=== PATIENT | male | born 1955 | race Caucasian/White ===

== ENCOUNTER 2017-12-02 11:33 | Observation (INO) | payer BC, OTHER ==
[~2017-12-02] VITALS: Ht 172.7 cm; Wt 100.0 kg
[~2017-12-02 11:33] MED LIST: ASPI81TA45 PO; ATOR40TA PO; PRIL20CA PO; VIAG100T PO; VITA400C28 PO
[2017-12-02 12:10] VITALS: BP 126/82; PULSE 90; RESP 16; TEMP 98.6; O2SAT 97
[2017-12-02] MEDS ORDERED: CLINDAMYCIN 600 MG/NS PREMIX 50 ML IV ONE (12:30)
[2017-12-02] MEDS ORDERED: SODIUM CHLORIDE 0.9% FLUSH 10 ML FLUSH IV FLUSH PRN ×2 (12:30→16:30)
[2017-12-02] MEDS ORDERED: ASPI81TA23 PO (12:42)
[2017-12-02] MEDS ORDERED: VITA1000 PO (12:42)
[2017-12-02] MEDS ORDERED: OMEP20TA93 PO (12:42)
[2017-12-02] MEDS ORDERED: ATOR40TA16 PO (12:42)
[2017-12-02 12:55] VITALS: BP 115/70; PULSE 62; RESP 17; O2SAT 94
[2017-12-02 13:02] LABS: AUTOMATED NEUTROPHIL # 12.7 TH/MM3 (1.8-7.7); BASOPHIL # 0.1 TH/MM3 (0-0.2); BASOPHIL % 0.5 % (0.0-2.0); EOSINOPHIL # 0.1 TH/MM3 (0-0.4); EOSINOPHIL % 0.6 % (0.0-4.0); HEMATOCRIT 40.8 % (39.0-51.0); HEMOGLOBIN 13.9 GM/DL (13.0-17.0); LYMPH % 24.8 % (9.0-44.0); LYMPHOCYTE # 4.8 TH/MM3 (1.0-4.8); MEAN CORPUSCULAR HEMOGLOBIN 28.7 PG (27.0-34.0); MEAN CORPUSCULAR HGB CONC 34.2 % (32.0-36.0); MEAN PLATELET VOLUME 8.4 FL (7.0-11.0); MONO % 9.2 % (0.0-8.0); MONOCYTE # 1.8 TH/MM3 (0-0.9); NEUT % 64.9 % (16.0-70.0); PLATELET COUNT 236 TH/MM3 (150-450); RED BLOOD COUNT 4.86 MIL/MM3 (4.50-5.90); RED CELL DISTRIBUTION WIDTH 13.8 % (11.6-17.2); WHITE BLOOD COUNT 19.5 TH/MM3 (4.0-11.0)
[2017-12-02 13:16] LABS: BICARBONATE 29.3 MEQ/L (21.0-32.0); CREATININE 1.21 MG/DL (0.60-1.30); MAGNESIUM 2.5 MG/DL (1.5-2.5)
--- NOTE | 2017-12-02 13:16 | PD ---
HPI Chief Complaint: Skin Problem Time Seen by Provider: 12:21 Travel History International Travel<30 days: No Contact w/Intl Traveler<30days: No Traveled to known affect area: No History of Present Illness HPI 62-year-old male that presents to the ED for evaluation of left groin infection. Per patient has had this since last . Per patient he noticed that it was a small pimple-like lesion. Per patient he was out of town and he noticed that he started to grow more in size. He developed some fevers but has had no fever today. He went to the urgent care today and urgent care told him to come here to get evaluated for possible gangrene versus internal abscess. Patient states having pain on the groin which is 6 out of 10. He is able to ambulate. He voices no other complaints. Per patient he does have a small opening where pus seems to be coming out of it. He denies any history of this in the past. No surgeries to this area. No history of diabetes or immunosuppression. States that he has not had a fever today. No bowel movement or urinary issues. No cough or runny nose. No allergies to medication. PFSH Past Medical History Cancer: No Cardiovascular Problems: Yes (RIGHT CAROTID BLOCKAGE) Diabetes: No Hepatitis: Yes (B) Hiatal Hernia: No Respiratory: Yes (SHORTNESS OF BREATH) Thyroid Disease: No Tetanus Vaccination: > 5 Years Past Surgical History Abdominal Surgery: No Cardiac Surgery: No Ear Surgery: No Pacemaker: No Other Surgery: Yes Social History Alcohol Use: Yes (2-3/ WEEK) Tobacco Use: Yes (CIGARETTES) Substance Use: Yes Allergies-Medications (Allergen,Severity, Reaction): Coded Allergies: No Known Allergies (Unverified Adverse Reaction, Unknown, 12/02/17) Reported Meds & Prescriptions Reported Meds & Active Scripts Active Viagra (Sildenafil Citrate) 100 Mg Tab 100 Mg PO DAILY PRN Reported Omeprazole 20 Mg Tab 20 Mg PO DAILY Vitamin D-1000 (Cholecalciferol) 1,000 Unit Tab 1,000 Units PO DAILY Atorvastatin (Atorvastatin Calcium) 40 Mg Tab 40 Mg PO HS Aspirin EC (Aspirin) 81 Mg Tabdr 81 Mg PO DAILY Review of Systems Except as stated in HPI: all other systems reviewed are Neg Physical Exam Narrative GENERAL: SKIN: Warm and dry. Patient has what appears to be an indurated/purulent area of about 8 cm in diameter on the left groin. Small opening with purulence expressed from it. HEAD: Atraumatic. Normocephalic. EYES: Pupils equal and round. No scleral icterus. No injection or drainage. ENT: No nasal bleeding or discharge. Mucous membranes pink and moist. Tongue is midline. No uvula deviation. NECK: Trachea midline. No JVD. CARDIOVASCULAR: Regular rate and rhythm. No murmurs, S3, S4. RESPIRATORY: No accessory muscle use. Clear to auscultation. Breath sounds equal bilaterally. GASTROINTESTINAL: Abdomen soft, non-tender, nondistended. Hepatic and splenic margins not palpable. MUSCULOSKELETAL: Extremities without clubbing, cyanosis, or edema. No obvious deformities. Full range of motion of the upper and lower extremities bilaterally. 2+ pulses bilaterally. NEUROLOGICAL: Awake and alert. No obvious cranial nerve deficits. Motor grossly within normal limits. Five out of 5 muscle strength in the arms and legs. Normal speech. PSYCHIATRIC: Appropriate mood and affect; insight and judgment normal. Data Data Last Documented VS Vital Signs Date Time Temp Pulse Resp B/P (MAP) Pulse Ox O2 Delivery O2 Flow Rate FiO2 12/02/17 12:55 62 17 115/70 (85) 94 Room Air 12/02/17 12:10 98.6 Orders Orders Complete Blood Count With Diff (12/02/17 12:28) Basic Metabolic Panel (Bmp) (12/02/17 12:28) Blood Culture (12/02/17 12:28) Magnesium (Mg) (12/02/17 12:28) Wound Culture And Gram Stain (12/02/17 12:28) Iv Access Insert/Monitor (12/02/17 12:28) Ecg Monitoring (12/02/17 12:28) Oximetry (12/02/17 12:28) Sodium Chloride 0.9% Flush (Ns Flush) (12/02/17 12:30) Ct Pelvis W Iv Contrast(Rout) (12/02/17 ) Clindamycin 600 Mg/Ns Premix (Cleocin 60 (12/02/17 12:30) Lactic Acid Sepsis Protocol (12/02/17 13:05) Iohexol 350 Inj (Omnipaque 350 Inj) (12/02/17 13:56) Lidocaine Pf 1% Inj (Xylocaine-Mpf 1% In (12/02/17 14:00) Admit Order (Ed Use Only) (12/02/17 ) Vital Signs (Adult) Q4H (12/02/17 15:00) Diet Heart Healthy (12/02/17 Dinner) Activity Bed Rest (12/02/17 15:00) Labs Laboratory Tests Test 12/02/17 12:55 12/02/17 13:10 White Blood Count 19.5 TH/MM3 Red Blood Count 4.86 MIL/MM3 Hemoglobin 13.9 GM/DL Hematocrit 40.8 % Mean Corpuscular Volume 84.0 FL Mean Corpuscular Hemoglobin 28.7 PG Mean Corpuscular Hemoglobin Concent 34.2 % Red Cell Distribution Width 13.8 % Platelet Count 236 TH/MM3 Mean Platelet Volume 8.4 FL Neutrophils (%) (Auto) 64.9 % Lymphocytes (%) (Auto) 24.8 % Monocytes (%) (Auto) 9.2 % Eosinophils (%) (Auto) 0.6 % Basophils (%) (Auto) 0.5 % Neutrophils # (Auto) 12.7 TH/MM3 Lymphocytes # (Auto) 4.8 TH/MM3 Monocytes # (Auto) 1.8 TH/MM3 Eosinophils # (Auto) 0.1 TH/MM3 Basophils # (Auto) 0.1 TH/MM3 CBC Comment DIFF FINAL Differential Comment Blood Urea Nitrogen 14 MG/DL Creatinine 1.21 MG/DL Random Glucose 106 MG/DL Calcium Level 9.0 MG/DL Magnesium Level 2.5 MG/DL Sodium Level 141 MEQ/L Potassium Level 4.6 MEQ/L Chloride Level 106 MEQ/L Carbon Dioxide Level 29.3 MEQ/L Anion Gap 6 MEQ/L Estimat Glomerular Filtration Rate 61 ML/MIN Lactic Acid Level 0.7 mmol/L [facility] Medical Decision Making Medical Screen Exam Complete: Yes Emergency Medical Condition: Yes Medical Record Reviewed: Yes Interpretation(s) Last Impressions Pelvis CT 12/02/17 0000 Signed Impressions: Service Date/Time: Saturday, December 02, 2017 13:37 - CONCLUSION: 1. Skin thickening and severe subcutaneous edema in the left inguinal region and extending into the left hemiscrotum. No organized fluid collection or abscess is present. This could represent a cellulitis. 2. There are asymmetric mildly enlarged left inguinal and left external iliac lymph nodes. These presumably are reactive secondary to the inflammatory or infectious process. Luis A Doyle MD CBC & BMP Diagram 12/02/17 12:55 Calcium Level 9.0, Magnesium Level 2.5 lactic acid WNL Differential Diagnosis Abscess versus cellulitis versus internal abscess versus gangrene less likely Narrative Course 62-year-old male that presents to the ED for evaluation of abscess. Patient was properly examined and was found to have signs and symptoms consistent appears to be likely abscess. Abscess does appear to be of large size. There was concern by urgent care that he may be deeper. I do not see any evidence of gangrene however. At this time recommend labs and imaging. Patient start IV antibiotics. Labs and imaging showed appears to be significant cellulitis to the left groin with small edema and lymphadenopathy. Patient does have leukocytosis as well. Condition at this time is admission for further eval. After explaining procedure to the patient and he agreed to it small abscess was incised and drained by me as stated in procedure note. Less than 5 cc of fluid were obtained. Most of the induration appears to be more related to cellulitis as there is no other purulence noted in the CAT scan or in exam. My attending Dr. Hernandez agrees with need for admission for further eval. Case discussed with the residents who agreed to admission. Sepsis Criteria SIRS Criteria (2 or more): WBC > 79758, < 4000 or > 10% bands Diagnosis Primary Impression: Cellulitis of groin, left Additional Impression: Abscess Admitting Information Admitting Physician Requests: Navarro Griffiths Dec 02, 2017 13:16
--- NOTE | 2017-12-02 13:23 | PD ---
Data Data Last Documented VS Vital Signs Date Time Temp Pulse Resp B/P (MAP) Pulse Ox O2 Delivery O2 Flow Rate FiO2 12/02/17 12:55 62 17 115/70 (85) 94 Room Air 12/02/17 12:10 98.6 Orders Orders Complete Blood Count With Diff (12/02/17 12:28) Basic Metabolic Panel (Bmp) (12/02/17 12:28) Blood Culture (12/02/17 12:28) Magnesium (Mg) (12/02/17 12:28) Wound Culture And Gram Stain (12/02/17 12:28) Iv Access Insert/Monitor (12/02/17 12:28) Ecg Monitoring (12/02/17 12:28) Oximetry (12/02/17 12:28) Sodium Chloride 0.9% Flush (Ns Flush) (12/02/17 12:30) Ct Pelvis W Iv Contrast(Rout) (12/02/17 ) Clindamycin 600 Mg/Ns Premix (Cleocin 60 (12/02/17 12:30) Lactic Acid Sepsis Protocol (12/02/17 13:05) Iohexol 350 Inj (Omnipaque 350 Inj) (12/02/17 13:56) Lidocaine Pf 1% Inj (Xylocaine-Mpf 1% In (12/02/17 14:00) Admit Order (Ed Use Only) (12/02/17 ) Vital Signs (Adult) Q4H (12/02/17 15:00) Diet Heart Healthy (12/02/17 Dinner) Activity Bed Rest (12/02/17 15:00) Labs Laboratory Tests Test 12/02/17 12:55 12/02/17 13:10 White Blood Count 19.5 TH/MM3 Red Blood Count 4.86 MIL/MM3 Hemoglobin 13.9 GM/DL Hematocrit 40.8 % Mean Corpuscular Volume 84.0 FL Mean Corpuscular Hemoglobin 28.7 PG Mean Corpuscular Hemoglobin Concent 34.2 % Red Cell Distribution Width 13.8 % Platelet Count 236 TH/MM3 Mean Platelet Volume 8.4 FL Neutrophils (%) (Auto) 64.9 % Lymphocytes (%) (Auto) 24.8 % Monocytes (%) (Auto) 9.2 % Eosinophils (%) (Auto) 0.6 % Basophils (%) (Auto) 0.5 % Neutrophils # (Auto) 12.7 TH/MM3 Lymphocytes # (Auto) 4.8 TH/MM3 Monocytes # (Auto) 1.8 TH/MM3 Eosinophils # (Auto) 0.1 TH/MM3 Basophils # (Auto) 0.1 TH/MM3 CBC Comment DIFF FINAL Differential Comment Blood Urea Nitrogen 14 MG/DL Creatinine 1.21 MG/DL Random Glucose 106 MG/DL Calcium Level 9.0 MG/DL Magnesium Level 2.5 MG/DL Sodium Level 141 MEQ/L Potassium Level 4.6 MEQ/L Chloride Level 106 MEQ/L Carbon Dioxide Level 29.3 MEQ/L Anion Gap 6 MEQ/L Estimat Glomerular Filtration Rate 61 ML/MIN Lactic Acid Level 0.7 mmol/L MDM Medical Record Reviewed: Yes Supervised Visit with BRENDON: Yes Narrative Course I, Dr. Hernandez, have reviewed the advance practice practitioner's documentation and am in agreement, met with the patient face to face, made the diagnosis, and the medical decision making was done by me. *My assessment and Findings: CBC & BMP Diagram 12/02/17 12:55 Calcium Level 9.0, Magnesium Level 2.5 The patient will be admitted for IV antibiotics. Case discussed with Dr. Asif for the family medicine residency program. Ji Hernandez MD Dec 02, 2017 13:22
[2017-12-02] MEDS ORDERED: IOHEXOL 350 MG/ML 10 ML VIAL (for RAD DIAG) IVCONTRAST ONE (13:56)
[2017-12-02] MEDS ORDERED: LIDOCAINE HCL 1% PF 30 ML VIAL INFIL ONE (14:00)
--- NOTE | 2017-12-02 14:30 | RADRPT ---
EXAM DATE/TIME: 12/02/2017 13:37 [place] COMPARISON: No previous studies available for comparison. INDICATIONS : Left groin pain. Evaluate for abscess. IV CONTRAST: 90 cc Omnipaque 350 (iohexol) IV ORAL CONTRAST: No oral contrast ingested. RADIATION DOSE: 13.06 CTDIvol (mGy) MEDICAL HISTORY : Hepatitis B. Cardiovascular disease SURGICAL HISTORY : None. ENCOUNTER: Initial ACUITY: 1 day PAIN SCALE: 7/10 LOCATION: Left groin TECHNIQUE: Volumetric scanning of the pelvis was performed. Using automated exposure control and adjustment of t he mA and/or kV according to patient size, radiation dose was kept as low as reasonably achievable to obtain optimal diagnostic quality images. DICOM format image data is available electronically for review and comparison. FINDINGS: BOWEL/MESENTERY: The visualized small and large bowel demonstrate no acute abnormality. There is no free fluid. BLADDER: There is no wall thickening or mass. RETROPERITONEUM: No aneurysm is identified. There is mild atherosclerotic disease. There is a mildly enlarged left ext ernal iliac lymph node measuring 11 mm in short axis diameter. No other lymphadenopathy is present. REPRODUCTIVE: Within normal limits. INGUINAL: No hernia is present. There is skin thickening and severe subcutaneous inflammation/edema in the left inguinal region and extending into the left scrotum. No organized fluid collection or abscess is pre sent. There are 2 borderline enlarged left inguinal lymph node measuring 10 mm in short axis diameter . However, these are asymmetric in size to the contralateral side. There is no subcutaneous air. MUSCULOSKELETAL: Bones demonstrate no acute finding. There is mild osteoarthritis at the hip joints. There is a fat containing umbilical hernia. CONCLUSION: 1. Skin thickening and severe subcutaneous edema in the left inguinal region and extending into the l eft hemiscrotum. No organized fluid collection or abscess is present. This could represent a cellulit is. 2. There are asymmetric mildly enlarged left inguinal and left external iliac lymph nodes. These pres umably are reactive secondary to the inflammatory or infectious process. Luis A Doyle MD on December 02, 2017 at 14:22 Board Certified Radiologist. This report was verified electronically.
[2017-12-02 15:13] VITALS: BP 139/79; PULSE 78; RESP 19; TEMP 99; O2SAT 97
--- NOTE | 2017-12-02 15:17 | HHI.HP ---
HPI Service Family Medicine Primary Care Physician No Primary Care Physician Admission Diagnosis Scrotum Cellulitis Diagnoses: International Travel<30 Days: No Contact w/Intl Traveler<30days: No Known Affected Area: No History of Present Illness Pt is a 62 year old with history of CAD, presenting to the ED due to groin swelling and cellulitis. He reports that on Saturday morning he noticed tenderness in his left groin area and a discrete lump about the size of a golf ball. He is not sure if he was bit by an insect/spider as there was a area in the center of this lesion that looks like a bite gerson. Saturday morning this area increased in size to about the size of a tennis ball. He reports using an [id number] salve to help promote healing, and this caused the lesion to open up and drain. Later on Saturday he reports having chills. On Saturday this area continued to increase in size. Last night he had a fever of 101.3, checked with an oral thermometer. He went to urgent care earlier today and was told to go to the ED due to concern for gangrene vs sepsis. He denies fevers today. No chest pain, shortness of breath, abdominal pain, diarrhea. No issues voiding. Review of Systems Constitutional: COMPLAINS OF: Fever, Chills Ears, nose, mouth, throat: DENIES: Vertigo Respiratory: DENIES: Shortness of breath Cardiovascular: DENIES: Chest pain Gastrointestinal: DENIES: Abdominal pain, Constipation, Diarrhea Genitourinary: DENIES: Urinary frequency Musculoskeletal: COMPLAINS OF: Muscle aches (groin) Integumentary: COMPLAINS OF: Rash (cellulitis) Hematologic/lymphatic: DENIES: Bruising Neurologic: DENIES: Localized weakness Psychiatric: DENIES: Mood changes Past Family Social History Past Medical History * Possible viral hepatitis * Gastroesophageal reflux disease * Cirrhosis? * Erectile dysfunction * Hyperlipidemia * CAD Past Surgical History * Cardiac catheterization in 2009, negative * Liver biopsy 2009 * Right knee arthroscopic surgery 1983 * Varicocele 1988 Reported Medications Reported Meds & Active Scripts Active Viagra (Sildenafil Citrate) 100 Mg Tab 100 Mg PO DAILY PRN Reported Omeprazole 20 Mg Tab 20 Mg PO DAILY Vitamin D-1000 (Cholecalciferol) 1,000 Unit Tab 1,000 Units PO DAILY Atorvastatin (Atorvastatin Calcium) 40 Mg Tab 40 Mg PO HS Aspirin EC (Aspirin) 81 Mg Tabdr 81 Mg PO DAILY Allergies: Coded Allergies: No Known Allergies (Unverified Allergy, Unknown, 12/02/17) Family History * Father: Coronary artery disease, type 2 diabetes, hypertension, dyslipidemia * Mother: Passed from degenerative brain disease, diabetes type 2, questionable schizophrenia * Brother: Anxiety * Brother: Anxiety * Sister: depression Social History * Per EMR Past history of heavy alcohol use. He attended rehabilitation in 1983. Sober x16 years. 2-3 drinks a week currently. * Has history of illicit drug use. Cocaine. Last use 1983. No IV drugs. * Currently smoking 1/3 of a pack of cigarettes a day. 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 SKIN: Cool and dry. Induration of left groin area about 12-15cm in diameter, outlined with marking pen. area where I and D was done covered with bandage, c/d /i. Tender to palpation. HEAD: Atraumatic. Normocephalic. EYES: Extraocular motions intact. No scleral icterus. No injection or drainage. ENT: Nose without bleeding, purulent drainage or septal hematoma. Uvula midline. Airway patent. NECK: Trachea midline. Supple, nontender, no meningeal signs. CARDIOVASCULAR: Regular rate and rhythm without murmurs, gallops, or rubs. RESPIRATORY: Clear to auscultation. Breath sounds equal bilaterally. No wheezes , rales, or rhonchi. GASTROINTESTINAL: Small umbilical hernia. Abdomen soft, non-tender, nondistended. No guarding. MUSCULOSKELETAL: Extremities without clubbing, cyanosis, or edema. No joint tenderness, effusion, or edema noted. No calf tenderness. Negative Homans sign bilaterally. NEUROLOGICAL: Awake and alert. Cranial nerves II through XII intact. Motor and sensory grossly within normal limits. Normal speech. Laboratory Laboratory Tests Test 12/02/17 12:55 12/02/17 13:10 White Blood Count 19.5 Red Blood Count 4.86 Hemoglobin 13.9 Hematocrit 40.8 Mean Corpuscular Volume 84.0 Mean Corpuscular Hemoglobin 28.7 Mean Corpuscular Hemoglobin Concent 34.2 Red Cell Distribution Width 13.8 Platelet Count 236 Mean Platelet Volume 8.4 Neutrophils (%) (Auto) 64.9 Lymphocytes (%) (Auto) 24.8 Monocytes (%) (Auto) 9.2 Eosinophils (%) (Auto) 0.6 Basophils (%) (Auto) 0.5 Neutrophils # (Auto) 12.7 Lymphocytes # (Auto) 4.8 Monocytes # (Auto) 1.8 Eosinophils # (Auto) 0.1 Basophils # (Auto) 0.1 CBC Comment DIFF FINAL Differential Comment Blood Urea Nitrogen 14 Creatinine 1.21 Random Glucose 106 Calcium Level 9.0 Magnesium Level 2.5 Sodium Level 141 Potassium Level 4.6 Chloride Level 106 Carbon Dioxide Level 29.3 Anion Gap 6 Estimat Glomerular Filtration Rate 61 Lactic Acid Level 0.7 Date/Time Source Procedure Growth Status 12/02/17 12:55 Blood Peripheral Aerobic Blood Culture Pending Received 12/02/17 12:55 Blood Peripheral Anaerobic Blood Culture Pending Received 12/02/17 12:55 Wound Abdomen Gram Stain Pending Received 12/02/17 12:55 Wound Abdomen Wound Culture Pending Received Result Diagram: 12/02/17 1255 12/02/17 1255 Imaging Last [address] 12/02/17 0000 Signed Impressions: Service Date/Time: Saturday, December 02, 2017 13:37 - CONCLUSION: 1. Skin thickening and severe subcutaneous edema in the left inguinal region and extending into the left hemiscrotum. No organized fluid collection or abscess is present. This could represent a cellulitis. 2. There are asymmetric mildly enlarged left inguinal and left external iliac lymph nodes. These presumably are reactive secondary to the inflammatory or infectious process. MD Keny Mcdonald VTE Risk Assessment [place]myi VTE Risk Assessment: No/Low Risk (score <= 1) Caprini Risk Assessment Model Point Value = 1 Point Value = 2 Point Value = 3 Point Value = 5 Age 41-60 Minor surgery BMI > 25 kg/m2 Swollen legs Varicose veins or History of unexplained or recurrent spontaneous Oral contraceptives or hormone replacement Sepsis (< 1 month) Serious lung disease, including pneumonia (< 1 month) Abnormal pulmonary function Acute myocardial infarction Congestive heart failure (< 1 month) History of inflammatory bowel disease Medical patient at bed rest Age 61-74 Arthroscopic surgery Major open surgery (> 45 min) Laparoscopic surgery (> 45 min) Malignancy Confined to bed (> 72 hours) Immobilizing plaster cast Central venous access Age >= 75 History of VTE Family history of VTE Factor V Leiden Prothrombin [id number] Lupus anticoagulant Anticardiolipin antibodies Elevated serum homocysteine Heparin-induced thrombocytopenia Other congenital or acquired thrombophilia Stroke (< 1 month) Elective arthroplasty Hip, pelvis, or leg fracture Acute spinal cord injury (< 1 month) Prophylaxis Regimen Total Risk Factor Score Risk Level Prophylaxis Regimen 0-1 Low Early ambulation 2 Moderate Order ONE of the following: *Sequential Compression Device (SCD) *Heparin 5000 units SQ BID 3-4 Higher Order ONE of the following medications: *Heparin 5000 units SQ TID *Enoxaparin/Lovenox 40 mg SQ daily (WT < 150 kg, CrCl > 30 mL/min) *Enoxaparin/Lovenox 30 mg SQ daily (WT < 150 kg, CrCl > 10-29 mL/min) *Enoxaparin/Lovenox 30 mg SQ BID (WT < 150 kg, CrCl > 30 mL/min) AND/OR *Sequential Compression Device (SCD) 5 or more Highest Order ONE of the following medications: *Heparin 5000 units SQ TID (Preferred with Epidurals) *Enoxaparin/Lovenox 40 mg SQ daily (WT < 150 kg, CrCl > 30 mL/min) *Enoxaparin/Lovenox 30 mg SQ daily (WT < 150 kg, CrCl > 10-29 mL/min) *Enoxaparin/Lovenox 30 mg SQ BID (WT < 150 kg, CrCl > 30 mL/min) AND *Sequential Compression Device (SCD) Assessment and Plan Assessment and Plan Pt is a 62 year old presenting with severe groin swelling requiring treatment with IV antibiotics. Code Status Full Discussed Condition With [facility] Dr. Workman Problem List: (1) Cellulitis of groin, left ICD Codes: L03.314 - Cellulitis of groin Plan: -Clindamycin 600mg IV Q6hrs -[place] as needed for pain -Continue to monitor for improvement Imaging: CT pelvis from 12/02 with skin thickening and severe subcutaneous edema in the left inguinal region and extending into the left hemiscrotum. No organized fluid collection or abscess is present. This could represent a cellulitis. There are asymmetrically mildly enlarged left inguinal and left external iliac lymph nodes. These presumably are reactive secondary to the inflammatory or infectious process. (2) Hyperlipidemia ICD Codes: E78.5 - Hyperlipidemia Status: Acute Plan: -Continue home statin -Patient with history of hyperlipidemia and has not had a lipid profile done recently, lipid profile ordered (3) GERD (gastroesophageal reflux disease) ICD Codes: K21.9 - Gastro-esophageal reflux disease without esophagitis Plan: -Continue home PPI (4) FEN/PPX Plan: Fluids: Encourage oral hydration, pt tolerating PO Electrolytes: continue to monitor, replete as needed Nutrition: Heart healthy diet DVT PPX: Sachin Engle MD R3 Dec 02, 2017 15:17
[2017-12-02] MEDS ORDERED: ACETAMINOPHEN 325 MG TAB PO PRN (16:45)
[2017-12-02] MEDS ORDERED: TEMAZEPAM 15 MG CAP PO PRN (16:45)
[2017-12-02] MEDS ORDERED: cloNIDine HCL 0.1 MG TAB PO PRN (16:45)
[2017-12-02] MEDS ORDERED: DOCUSATE SODIUM 50 MG/SENNA 8.6 MG TAB PO PRN (16:45)
[2017-12-02] MEDS ORDERED: ONDANSETRON HCL 4 MG/2 ML VIAL IV PUSH PRN (16:45)
[2017-12-02] MEDS ORDERED: ENOXAPARIN SODIUM 40 MG/0.4 ML SYRINGE SQ SCH (17:00)
[2017-12-02 17:50] VITALS: BP 131/86; PULSE 80; RESP 16; TEMP 98.7; O2SAT 96
[2017-12-02 20:19] VITALS: BP 141/84; PULSE 85; RESP 16; TEMP 99; O2SAT 95
[2017-12-02] MEDS ORDERED: ATORVASTATIN 40 MG TAB PO SCH (21:00)
[2017-12-02] MEDS: SODIUM CHLORIDE 0.9% FLUSH 10 ML FLUSH IV FLUSH SCH (21:01)
[2017-12-02] MEDS: ACETAMINOPHEN/HYDROcodone 325 MG/5 MG TAB PO PRN (21:02)
[2017-12-02] MEDS: CLINDAMYCIN 600 MG/NS PREMIX 50 ML IV SCH (21:03)
[2017-12-03 00:06] VITALS: BP 104/65; PULSE 73; RESP 17; TEMP 98.4; O2SAT 94
[2017-12-03] MEDS: CLINDAMYCIN 600 MG/NS PREMIX 50 ML IV SCH ×2 (02:37→09:59)
[2017-12-03] MEDS: ACETAMINOPHEN/HYDROcodone 325 MG/5 MG TAB PO PRN (02:49)
[2017-12-03 03:45] VITALS: BP 129/84; PULSE 67; RESP 16; TEMP 98.2; O2SAT 96
[2017-12-03 07:24] LABS: AUTOMATED NEUTROPHIL # 8.6 TH/MM3 (1.8-7.7); BASOPHIL # 0.1 TH/MM3 (0-0.2); BASOPHIL % 0.5 % (0.0-2.0); EOSINOPHIL # 0.3 TH/MM3 (0-0.4); EOSINOPHIL % 1.7 % (0.0-4.0); HEMATOCRIT 39.8 % (39.0-51.0); HEMOGLOBIN 13.6 GM/DL (13.0-17.0); LYMPH % 28.5 % (9.0-44.0); LYMPHOCYTE # 4.1 TH/MM3 (1.0-4.8); MEAN CELL VOLUME 85.1 FL (80.0-100.0); MEAN CORPUSCULAR HEMOGLOBIN 29.1 PG (27.0-34.0); MEAN CORPUSCULAR HGB CONC 34.1 % (32.0-36.0); MONO % 9.5 % (0.0-8.0); MONOCYTE # 1.4 TH/MM3 (0-0.9); NEUT % 59.8 % (16.0-70.0); PLATELET COUNT 194 TH/MM3 (150-450); RED BLOOD COUNT 4.67 MIL/MM3 (4.50-5.90); RED CELL DISTRIBUTION WIDTH 13.7 % (11.6-17.2); WHITE BLOOD COUNT 14.4 TH/MM3 (4.0-11.0)
[2017-12-03 07:38] VITALS: BP 114/64; PULSE 69; RESP 18; TEMP 98; O2SAT 95
[2017-12-03 07:45] LABS: ALBUMIN 3.1 GM/DL (3.4-5.0); ALT (GPT) 25 U/L (12-78); AST (GOT) 15 U/L (15-37); BICARBONATE 26.7 MEQ/L (21.0-32.0); BLOOD UREA NITROGEN 14 MG/DL (7-18); CALCIUM 8.8 MG/DL (8.5-10.1); CHLORIDE 106 MEQ/L (98-107); CHOLESTEROL 120 MG/DL (120-200); CREATININE 1.21 MG/DL (0.60-1.30); GLOMERULAR FILTRATION RATE 61 ML/MIN (>89); GLUCOSE,RANDOM 97 MG/DL (74-106); SODIUM (NA) 140 MEQ/L (136-145); TRIGLYCERIDES 100 MG/DL (42-150)
[2017-12-03 07:48] LABS: ALKALINE PHOSPHATASE 59 U/L (45-117); CHOLESTEROL/ HDL RATIO 3.42 RATIO; LDL CHOLESTEROL 65 MG/DL (0-99); TOTAL BILIRUBIN ADULT 1.6 MG/DL (0.2-1.0); TOTAL PROTEIN 7.4 GM/DL (6.4-8.2)
--- NOTE | 2017-12-03 07:53 | HHI.FPPN ---
Subjective Remarks Pt seen and examined this morning. No acute events overnight. He reports that pain and swelling of groin has significantly improved. He denies chest pain, shortness of breath, abdominal pain, diarrhea. He is comfortable going home with oral antibiotics. He reports being very concerned about past liver abnormalities. AST and ALT within normal limits this morning. Per review of EMR He had a liver biopsy in 2010 that was negative for Hepatitis B testing although serology was previously positive. Pt to follow up with the [facility], [place] later this week, packing to be removed at this time. (Sachin Asif MD R3) Objective Vitals Vital Signs Date Time Temp Pulse Resp B/P (MAP) Pulse Ox O2 Delivery O2 Flow Rate FiO2 12/03/17 07:38 98.0 69 18 114/64 (81) 95 12/03/17 03:45 98.2 67 16 129/84 (99) 96 12/03/17 00:06 98.4 73 17 104/65 (78) 94 12/02/17 20:19 99.0 85 16 141/84 (103) 95 12/02/17 17:50 98.7 80 16 131/86 (101) 96 12/02/17 17:20 12/02/17 15:13 99.0 78 19 139/79 (99) 97 Room Air 12/02/17 12:55 62 17 115/70 (85) 94 Room Air 12/02/17 12:10 98.6 90 16 126/82 (97) 97 I/O 12/02/17 12/02/17 12/02/17 12/03/17 12/03/17 12/03/17 07:00 15:00 23:00 07:00 15:00 23:00 Intake Total 150 ml Balance 150 ml Intake IV Total 150 ml # Voids 1 2 (Sachin Asif MD R3) Result Diagram: 12/03/17 0600 12/03/17 0600 Objective Remarks GENERAL: This is a well-nourished, well-developed patient, in no apparent distress, very talkative. SKIN: Cool and dry. Induration of left groin area significantly improved about 7x3cm in diameter, original area of redness and edema outlined with marking pen. area where I and D was done covered with bandage. Tender to palpation. HEAD: Atraumatic. Normocephalic. EYES: Extraocular motions intact. No scleral icterus. No injection or drainage. ENT: Nose without bleeding, purulent drainage or septal hematoma. Uvula midline. Airway patent. NECK: Trachea midline. Supple, nontender, no meningeal signs. CARDIOVASCULAR: Regular rate and rhythm without murmurs, gallops, or rubs. RESPIRATORY: Clear to auscultation. Breath sounds equal bilaterally. No wheezes , rales, or rhonchi. GASTROINTESTINAL: Small umbilical hernia. Abdomen soft, non-tender, nondistended. No guarding. MUSCULOSKELETAL: Extremities without clubbing, cyanosis, or edema. No joint tenderness, effusion, or edema noted. No calf tenderness. Negative Homans sign bilaterally. NEUROLOGICAL: Awake and alert. Cranial nerves II through XII intact. Motor and sensory grossly within normal limits. Normal speech. (Sachin Asif MD R3) A/P Assessment and Plan Pt is a 62 year old presenting with severe groin swelling requiring treatment with IV antibiotics. Discharge Planning Anticipate discharge later today. (Sachin Asif MD R3) Attending Attestation Patient seen and examined. Case reviewed and discussed with the resident team. Agree with plan of care as discussed with me and documented in the resident note. he feels so well he wishes to go home and take po abx (Serena Workman MD) Problem List: (1) Cellulitis of groin, left ICD Codes: L03.314 - Cellulitis of groin Plan: -Clindamycin 600mg IV Q6hrs -[place] as needed for pain -Continue to monitor for improvement Imaging: CT pelvis from 12/02 with skin thickening and severe subcutaneous edema in the left inguinal region and extending into the left hemiscrotum. No organized fluid collection or abscess is present. This could represent a cellulitis. There are asymmetrically mildly enlarged left inguinal and left external iliac lymph nodes. These presumably are reactive secondary to the inflammatory or infectious process. (2) Hyperlipidemia ICD Codes: E78.5 - Hyperlipidemia Status: Acute Plan: -Continue home statin -Lipid panel with normal total cholesterol, HDL low at 35. (3) GERD (gastroesophageal reflux disease) ICD Codes: K21.9 - Gastro-esophageal reflux disease without esophagitis Plan: -Continue home PPI (4) Liver function abnormality ICD Codes: K76.89 - Other specified diseases of liver Plan: AST and ALT within normal limits on 12/03/17 Per review of EMR He had a liver biopsy in 2010 that was negative for Hepatitis B testing although serology was previously positive. No additional work up needed at this time, pt can follow up with PCP for additional testing (5) FEN/PPX Plan: Fluids: Encourage oral hydration, pt tolerating PO Electrolytes: continue to monitor, replete as needed Nutrition: Heart healthy diet DVT PPX: Lovenox (Sachin Asif MD R3) Sachin Asif MD R3 December 03, 2017 07:53 Serena Workman MD December 06, 2017 11:19
[2017-12-03] MEDS ORDERED: PANTOPRAZOLE SOD 20 MG DELAYED RELEASE TAB PO SCH (09:00)
[2017-12-03] MEDS ORDERED: CHOLECALCIFEROL (VIT D3) 1000 UNIT TAB PO SCH (09:00)
[2017-12-03] MEDS ORDERED: ASPIRIN EC 81 MG TABEC PO SCH (09:00)
[2017-12-03] MEDS ORDERED: NON-FORMULARY DRUG (Omeprazole 20 MG) PO SCH (09:00)
[2017-12-03] MEDS: SODIUM CHLORIDE 0.9% FLUSH 10 ML FLUSH IV FLUSH SCH (09:59)
[2017-12-03 11:21] VITALS: BP 121/58; PULSE 77; RESP 18; TEMP 98.2; O2SAT 95
--- NOTE | 2017-12-03 11:35 | HHI.DCPOC ---
Discharge Care Plan Diagnosis: (1) Cellulitis of groin, left (2) Vitamin D deficiency (3) Hyperlipidemia (4) GERD (gastroesophageal reflux disease) Goals to Promote Your Health * To prevent worsening of your condition and complications * To maintain your health at the optimal level Directions to Meet Your Goals Take your medications as prescribed Follow your dietary instruction Follow activity as directed Keep your appointments as scheduled Take your immunizations and boosters as scheduled If your symptoms worsen call your PCP, if no PCP go to Urgent Care Center or Emergency Room Smoking is Dangerous to Your Health. Avoid second hand smoke Call the 24-hour hour crisis hotline for domestic abuse at Sachin Asif MD R3 December 03, 2017 11:35
[2017-12-03] MEDS ORDERED: CLIN300C5 PO (11:46)
[2017-12-03] MEDS ORDERED: IBUP1TAB7 PO (11:46)
== END 2017-12-03 16:18 | disposition home or self-care (01) ==
LOC: NEPE 11:33 → NEDA 15:02 → NEPGCP 17:21
PROVIDERS: ADMIT Family Medicine; ATTEND Family Medicine
DX: L03.314 Cellulitis of groin (principal); E55.9 Vitamin D deficiency, unspecified; I25.10 Atherosclerotic heart disease of native coronary artery without angina pectoris; E78.5 Hyperlipidemia, unspecified; K21.9 Gastro-esophageal reflux disease without esophagitis; B19.10 Unspecified viral hepatitis B without hepatic coma; F17.210 Nicotine dependence, cigarettes, uncomplicated; Z79.899 Other long term (current) drug therapy
CPT/HCPCS: 10060; 72193; 80048; 80053; 80061; 82306; 83605; 83735; 85025; 86403; 87040; 87070; 87147; 87186; 96365; 99285; G0378; J1650; Q9967